=== PATIENT | male | born 1985 | race African-American/Black ===

== ENCOUNTER 2024-10-27 09:42 | Emergency (ER) | payer MEDICAID, OTHER ==
[~2024-10-27] VITALS: Ht 185.4 cm; Wt 83.3 kg
[2024-10-27 09:59] VITALS: BP 144/90; PULSE 66; RESP 16; TEMP 98.1; O2SAT 99
--- NOTE | 2024-10-27 10:10 | ED.PDOC ---
HPI Comments 39 year old male with no past medical history presents to the emergency department with a chief complaint of RT thumb laceration onset today (10/27/24) around 08:30. Patient states he cut his Rt thumb with a kitchen knife. Patient a poor historian, reluctant to answer questions. Since 08:30, patient states he has tried to apply pressure, bleeding has not been controlled. Unknown when last tetanus vaccine was, patient does not want to update tetanus vaccine. No other symptoms or modifying factors present at this time. Denies head injury, LOC Denies numbness/tingling Denies nausea vomiting Denies dizziness, blurry vision Chief Complaint: Laceration Time Seen by MD: 10:00 Reviewed Notes: Nurses Notes, Medications, Allergies Allergies: Coded Allergies: NO KNOWN ALLERGIES (Unverified , 10/27/24) Information Source: Patient Mode of Arrival: Ambulatory Severity: Moderate Complexity: Simple Timing: Hours Prehospital treatment: None Laceration Location: Digit #1 Mechanism: Knife Last Tetanus: Unknown Laceration Length (cm): 1 Depth of Injury: Skin Tendon Injury: 0% Capillary Refill: < 3 seconds Tender: Moderate Past Medical History PAST MEDICAL HISTORY: Denies Surgical History: Denies all surgeries Family History Family History: Reviewed,noncontributory to illness, No family hx of Cancer, No family hx of DM, No family hx of Heart ayo, No family hx of HTN, No family hx ofKidney ayo, No family hx of Liver ayo, No family hx of Lung ayo, No family hx of Stroke Social History Smoker: Non-Smoker Alcohol: Denies ETOH Use Drugs: Denies Drug Use Lives In: Home All Other Systems: Reviewed and Negative (as per HPI) Physical Exam General Appearance: No Apparent Distress, Normal HEENT: Normal ENT Inspection, Pharynx Normal, TMs Normal Neck: Full Range of Motion, Non-Tender, Normal, Normal Inspection Respiratory: Chest Non-Tender, Lungs Clear, No Accessory Muscle Use, No Respiratory Distress, Normal Breath Sounds Cardiovascular: No Murmur, No Gallop, Regular Rate/Rhythm Breast Exam: Deferred Gastrointestinal: No Organomegaly, Non Tender, No Pulsatile Mass, Normal Bowel Sounds, Soft Genitalia: Deferred Pelvic: Deferred Rectal: Deferred Extremities: No calf tenderness, Normal capillary refill, Normal inspection, Normal range of motion, Non-tender, No pedal edema Musculoskeletal : Location: Right Extremity Location: Thumb (Wounds cm avulsion to the medial aspect of the distal phalanges. Mild active bleeding. Injury to the dermis epidermis. No tendon involvement. Full range of motion. Neurovascular sensation intact and cap refill less than three) Apperance: Normal Neurologic: Alert, new accounts representative II-XII nml as Tested, No Motor Deficits, Normal Affect, Normal Mood, No Sensory Deficits Cerebellar Function: Normal Reflexes: Normal Skin: Dry, Normal Color, Warm Lymphatic: No Adenopathy Was a procedure done? Was a procedure done?: No Differential diagnosis Generic Laceration: Abrasion/Contusion, Laceration, Avulsion, Other X-Ray, Labs, Meds, VS Vital Signs Date Time Temp Pulse Resp B/P (MAP) Pulse Ox O2 Delivery O2 Flow Rate FiO2 10/27/24 09:59 98.1 66 16 144/90 (108) 99 98.1 X-Ray, Labs, Meds, VS Comment 39 year old male with no past medical history presents to the emergency department with a chief complaint of RT thumb laceration onset today (10/27/24) around 08:30. Patient arrives alert and oriented, ABC's intact, afebrile, vital signs stable, saturating well in room air Minor avulsion. No signs of arterial injury. Pressure dressing applied Advised to return in 24 hours sooner prn Declined Tdap. education provided On reevaluation, patient had symptomatic improvement. Patient is stable for discharge at this time. External notes reviewed. Test results and diagnostic imaging interpreted. All diagnostic findings, discharge care, education and instructions provided Follow-up with PCP in 2 to 3 days Patient verbalized understanding and agreed to treatment plan Vital signs stable, afebrile, no acute distress noted Patient ambulatory with strong steady gait Advised to return precautions for any new or worsening symptoms, return to ER immediately for re-evaluation Patient is aware that the purpose of this visit was for an acute medical emergency requiring emergent stabilization. Chronic conditions, including ma lignancies have not been ruled out. Patient is instructed to follow up with PCP as directed and discharge instructions for continued care and workup. If unable to arrange follow-up, patient is to return to the emergency department for reassessment. Patient (parent or legal guardian if applicable) was given verbal and written discharge instructions and acknowledges understanding. Additional MDM Review of External, Non-ED records: External records reviewed. Discussion with independent historian (EMS, family) history obtained from the patient/parents (if applicable) at bedside Chronic conditions affecting care: None Social determinants of health affecting care: None Consideration of admission (observation or admission): I considered escalation of care to admission for this patient, however given the reassuring workup, the patient is safe for outpatient management. Time of 1ST Reevaluation: 10:30 Reevaluation 1ST: Improved Patient Education/Counseling: Diagnosis, Treatment Family Education/Counseling: No Family Present Departure 1 Departure Time of Disposition: 10:15 Impression: Primary Impression: Avulsion, skin Disposition: 01 HOME / SELF CARE / HOMELESS Condition: Stable Critical Care Note Critical Care Time?: No Stability Stability form required: No Heart Score Heart Score: Heart Score Response (Comments) Value History N/A 0 EKG N/A 0 Age N/A 0 Risk Factors N/A 0 Troponin N/A 0 Total 0 I personally scribed for LAKISHA BONDS NP ([email or web address]) on 10/27/24 at 10:10. Electronically submitted by Jessie Burden ([email or web address]). I personally scribed for LAKISHA BONDS NP ([email or web address]) on 10/27/24 at 10:18. Electronically submitted by Jessie Burden ([email or web address]). LAKISHA BONDS NP Oct 27, 2024 10:10
== END 2024-10-27 10:59 | disposition home or self-care (01) ==
LOC: ER 09:51
DX: S61.011A Laceration without foreign body of right thumb without damage to nail, initial encounter (principal); W26.0XXA Contact with knife, initial encounter; Y93.89 Activity, other specified; Y92.090 Kitchen in other non-institutional residence as the place of occurrence of the external cause; Y99.8 Other external cause status

== ENCOUNTER 2024-10-28 09:22 | Emergency (ER) | payer MEDICAID, OTHER ==
[~2024-10-28] VITALS: Ht 185.4 cm; Wt 81.5 kg
[2024-10-28 09:30] VITALS: BP 153/88; PULSE 66; RESP 16; TEMP 98.2; O2SAT 98
--- NOTE | 2024-10-28 09:41 | ED.PDOC ---
History of Present Illness HPI Comments 39-year-old male presents to the ED for the chief complaint of a wound check for a prior right thumb laceration. Patient states that he cut his thumb two days ago with a kitchen knife, while he was making dinner. Patient states that he was advised to return to the ED today to ensure proper wound healing. Patient denies any pain, no discharge or foreign body noted, wound noted to be healing appropriately at this time. Time Seen by MD: 09:38 Reviewed Notes: Nurses Notes, Medications, Allergies Allergies: Coded Allergies: NO KNOWN ALLERGIES (Unverified , 10/27/24) Information Source: Patient Mode of Arrival: Ambulatory Severity: None Timing: Days Duration: Intermittent, Days Prehospital treatment: None Past Medical History PAST MEDICAL HISTORY: Denies Surgical History: Denies all surgeries Family History Family History: Reviewed,noncontributory to illness, No family hx of Cancer, No family hx of DM, No family hx of Heart ayo, No family hx of HTN, No family hx ofKidney ayo, No family hx of Liver ayo, No family hx of Lung ayo, No family hx of Stroke Social History Smoker: Non-Smoker Alcohol: Denies ETOH Use Drugs: Denies Drug Use Lives In: Home Constitutional: denies: chills, diaphoresis, fatigue, fever, malaise, sweats, weakness, others EENTM: denies: blurred vision, double vision, ear bleeding, ear discharge, ear drainage, ear pain, ear ringing, eye pain, eye redness, hearing loss, mouth pain, mouth swelling, nasal discharge, nose bleeding, nose congestion, nose pain, photophobia, tearing, throat pain, throat swelling, voice changes, others Respiratory: denies: cough, hemoptysis, orthopnea, SOB at rest, shortness of breath, SOB with excertion, stridor, wheezing, others Cardiovascular: denies: chest pain, dizzy spells, diaphoresis, Dyspnea on exertion, edema, irregular heart beat, left arm pain, lightheadedness, palpitations, PND, syncope, others Gastrointestinal: denies: abdomen distended, abdominal pain, blood streaked bowels, constipated, diarrhea, dysphagia, difficulty swallowing, hematemesis, melena, nausea, poor appetite, poor fluid intake, rectal bleeding, rectal pain, vomiting, others Genitourinary: denies: burning, dysuria, flank pain, frequency, hematuria, incontinence, penile discharge, penile sore, pain, testicle pain, testicle swelling, urgency, others Neurological: denies: dizziness, fainting, headache, left sided numbness, left sided weakness, numbness, paresthesia, pre-existing deficit, right sided numbness, right sided weakness, seizure, speech problems, tingling, tremors, weakness, others Musculoskeletal: denies: back pain, gout, joint pain, joint swelling, muscle pain, muscle stiffness, neck pain, others Integumetry: denies: bruises, change in color, change in hair/nails, dryness, laceration, lesions, lumps, rash, wounds, others Allergic/Immunocompromised: denies: Difficulty Healing, Frequent Infections, Hives, Itching, others Hematologic/Lymphatic: denies: anemia, blood clots, easy bleeding, easy bruising, swollen glands, others Endocrine: denies: excessive hunger, excessive sweating, excessive thirst, excessive urination, flushing, intolerance to cold, intolerance to heat, unexplained weight gain, unexplained weight loss, others Psychiatric: denies: anxiety, bipolar disorder, depression, hopeless, panic disorder, schizophrenia, sleepless, suicidal, others All Other Systems: Reviewed and Negative Physical Exam General Appearance: No Apparent Distress, Normal HEENT: Normal ENT Inspection, Pharynx Normal, TMs Normal Neck: Full Range of Motion, Non-Tender, Normal, Normal Inspection Respiratory: Chest Non-Tender, Lungs Clear, No Accessory Muscle Use, No Respiratory Distress, Normal Breath Sounds Cardiovascular: No Edema, No JVD, No Murmur, No Gallop, Normal Peripheral Pulses, Regular Rate/Rhythm Breast Exam: Deferred Gastrointestinal: No Organomegaly, Non Tender, No Pulsatile Mass, Normal Bowel Sounds, Soft Genitalia: Deferred Pelvic: Deferred Rectal: Deferred Extremities: No calf tenderness, Normal capillary refill, Normal inspection, Normal range of motion, Non-tender, No pedal edema Musculoskeletal : Location: Right Extremity Location: Thumb (No gross abnormality, no discharge, neurovascular sensitivity intact, wound healing appropriately) Apperance: Normal Neurologic: Alert, filter assembler II-XII nml as Tested, No Motor Deficits, Normal Affect, Normal Mood, No Sensory Deficits Cerebellar Function: Normal Reflexes: Normal Skin: Dry, Normal Color, Warm Lymphatic: No Adenopathy Was a procedure done? Was a procedure done?: No X-Ray, Labs, Meds, VS Vital Signs Date Time Temp Pulse Resp B/P (MAP) Pulse Ox O2 Delivery O2 Flow Rate FiO2 10/28/24 09:30 98.2 66 16 153/88 (109) 98 98.2 X-Ray, Labs, Meds, VS Comment 39-year-old male presents to the ED for the chief complaint of a wound check for a prior right thumb laceration. Patient arrives alert and oriented, ABC's intact, afebrile, vital signs stable, saturating well in room air Additional MDM Review of External, Non-ED records: External records reviewed. Discussion with independent historian (EMS, family) history obtained from the patient/parents (if applicable) at bedside Chronic conditions affecting care: None Social determinants of health affecting care: None Time of 1ST Reevaluation: 10:08 Reevaluation 1ST: Unchanged Patient Education/Counseling: Diagnosis, Treatment, Need For Follow Up Family Education/Counseling: No Family Present SEPSIS Sepsis Screen Vital Signs Date Time Temp Pulse Resp B/P (MAP) Pulse Ox O2 Delivery O2 Flow Rate FiO2 10/28/24 09:30 98.2 66 16 153/88 (109) 98 98.2 Departure 1 Departure Time of Disposition: 10:18 Impression: Primary Impression: Avulsion, skin Disposition: 01 HOME / SELF CARE / HOMELESS Condition: Stable Discharged With: Self Critical Care Note Critical Care Time?: No Stability Stability form required: No Heart Score Heart Score: Heart Score Response (Comments) Value History N/A 0 EKG N/A 0 Age N/A 0 Risk Factors N/A 0 Troponin N/A 0 Total 0 I personally scribed for LAKISHA BONDS NP ([email or web address]) on 10/28/24 at 09:41. Electronically submitted by Ac Spence ([email or web address]). LAKISHA BONDS NP Oct 28, 2024 09:41
== END 2024-10-28 10:59 | disposition home or self-care (01) ==
LOC: ER 09:22
DX: S61.011D Laceration without foreign body of right thumb without damage to nail, subsequent encounter (principal); X58.XXXD Exposure to other specified factors, subsequent encounter